=== PATIENT | female | born 1980 | race Caucasian/White ===

== ENCOUNTER → 2023-06-08 | Outpatient (CLI) | payer OTHER, SELFPAY ==
--- OUTSIDE RECORDS SUMMARY | 2023-06-08 09:02 | XMS RPT_ITS | CCD ---
Author Name Unknown Address [address] [place] [address] Organization [facility] Care Team Providers Care Psychologist Industrial Organizational Name Role Phone Michael Parikh MD Primary Care Provider [phone] LIANNA PARK Referring Unavailable MICHAEL PARIKH Primary Care Unavailable SOPHY PAGAN Attending Unavailable MICHAEL PARIKH Primary Care Unavailable MICHAEL PARIKH Attending Unavailable MICHAEL PARIKH Primary Care Unavailable Allergies Allergy Classification Reported Allergen(s) Allergy Type Date of Onset Reaction(s) Facility (7 sources) Iodine Drug Allergy 11-26-2014 Anaphylaxis [facility] (7 sources) Shellfish-Derive d Products Drug Intolerance 06-02-2015 [facility] (4 sources) bee venom Propensity to adverse reactions 03-20-2021 [facility] Medications Current Medications Medication Drug Class(es) Dates Sig (Normalized) Sig (Original) amoxicillin 875 mg / clavulanate 125 mg oral tablet (7 sources) Penicillin-class Antibacterial Start: 09-30-2022 take 1 tablet by mouth every twelve hours amoxicillin-clav ulanate (Augmentin) 875-125 MG tablet Take 1 tablet by mouth every 12 hours for 7 days 14 tablet 0 09/30/2022 Active busPIRone hydrochloride 7.5 mg oral tablet (8 sources) Start: 02-02-2023 take 1 tablet by mouth twice daily busPIRone (Buspar) 7.5 MG tablet take one tablet by mouth two times a day 180 tablet 0 02/02/2023 Active Completed/Discontinued Medications Medication Drug Class(es) Dates Sig (Normalized) Sig (Original) fluticasone propionate 0.05 mg/actuat metered dose nasal spray (4 sources) Corticosteroid Start: 09-30-2022 End: 05-16-2023 take 2 spray(s) nasal route once daily, then take 1-2 spray(s) nasal route once daily fluticasone (Flonase) 50 MCG/ACT nasal spray Administer 2 sprays into each nostril once daily for 1 week then may adjust to 1-2 sprays each nostril once daily. 16 g 0 09/30/2022 05/16/2023 Discontinued 24 hr venlafaxine 150 mg extended release oral capsule (18 sources) Serotonin and Norepinephrine Reuptake Inhibitor Start: 02-17-2022 End: 05-02-2024 take 1 capsule by mouth once daily venlafaxine XR (Effexor XR) 75 MG 24 hr capsule TAKE 1 CAPSULE BY MOUTH DAILY 90 capsule 0 05/03/2023 05/02/2024 Active Problems Active Problems Problem Classification Problem Date Documented Da te Episodic/Chronic Anxiety disorders (7 sources) Anxiety; Translations: [Anxiety disorder, unspecified] Onset: 11-28-2014 03-19-2022 Chronic Mood disorders (7 sources) Recurrent major depression in partial remission; Translations: [Major depressive disorder, recurrent, in partial remission] Onset: 07-01-2020 03-19-2022 Chronic Nutritional deficiencies (10 sources) Vitamin D deficiency; Translations: [Vitamin D deficiency, unspecified] Onset: 03-08-2018 03-19-2022 Chronic Other female genital disorders (1 source) History of dysplasia of cervix; Translations: [Personal history of cervical dysplasia] 12-01-2022 Episodic Other inflammatory condition of skin (7 sources) Psoriasis; Translations: [Psoriasis, unspecified] Onset: 02-17-2022 03-19-2022 Chronic Other skin disorders (1 source) Night sweats; Translations: [Generalized hyperhidrosis] 12-01-2022 Episodic Past or Other Problems Problem Classification Problem Date Documented Da te Episodic/Chronic Other female genital disorders (2 sources) Personal history of cervical dysplasia; Translations: [Personal history of cervical dysplasia] Onset: 12-01-2022 Episodic Other screening for suspected conditions (not mental disorders or infectious disease) (13 sources) Cancer cervix screening status; Translations: [Encounter for screening for malignant neoplasm of cervix] Onset: 12-02-2021 12-01-2022 Episodic Other skin disorders (2 sources) Generalized hyperhidrosis; Translations: [Generalized hyperhidrosis] Onset: 12-01-2022 Episodic Viral infection (7 sources) Recurrent herpes simplex labialis; Translations: [Herpesviral vesicular dermatitis] Onset: 06-19-2015 03-19-2022 Episodic Results Test Name Value Interpretation Reference Range Facil ity Vital Signs Date Time Vital Sign Value Performing Clinician Faci [facility] 05-16-2023 15:50-0500 Body height 170.2 cm Michael Parikh MD Work Phone: [facility] 05-16-2023 15:50-0500 Body mass index (BMI) [Ratio] 26.47 kg/m2 Michael Parikh MD Work Phone: [facility] 05-16-2023 15:50-0500 Body weight 76.66 kg Michael Parikh MD Work Phone: [facility] 05-16-2023 15:50-0500 Diastolic blood pressure 82 mm[Hg] Michael Parikh MD Work Phone: [facility] 05-16-2023 15:50-0500 Heart rate 102 /min Michael Parikh MD Work Phone: [facility] 05-16-2023 15:50-0500 SaO2% (BldA) [Mass fraction] 98 % Michael Parikh MD Work Phone: [facility] 05-16-2023 15:50-0500 Systolic blood pressure 138 mm[Hg] Michael Parikh MD Work Phone: [facility] 12-01-2022 14:43-0400 Body height 170.2 cm Sophy Pagan MD Work Phone: [facility] 12-01-2022 14:43-0400 Body mass index (BMI) [Ratio] 24.59 kg/m2 Sophy Pagan MD Work Phone: [facility] 12-01-2022 14:43-0400 Body temperature 98.2 [degF] Sophy Pagan MD Work Phone: [facility] 12-01-2022 14:43-0400 Body weight 71.22 kg Sophy Pagan MD Work Phone: [facility] 12-01-2022 14:43-0400 Diastolic blood pressure 74 mm[Hg] Sophy Pagan MD Work Phone: [facility] 12-01-2022 14:43-0400 Systolic blood pressure 116 mm[Hg] Sophy Pagan MD Work Phone: [facility] Encounters Encounter Date Encounter Type Care Provider Facility Start: 05-17-2023 Telephone encounter Kiki Zheng PAULO [facility] Clinical Communication Procedures Date Procedure Procedure Detail Performing Clinician Start: 12-01-2022 Microscopic observat ion [Identifier] in Cervix by Cyto stain Michael Parikh MD Work Phone: Start: 07-05-2022 Mammography Sophy lorenzo MD Work Phone: Start: 11-18-2021 Microscopic observat ion [Identifier] in Cervix by Cyto stain Sophy Pagan MD Work Phone: Start: 06-16-2019 Follow-up visit Start: 11-11-2018 Follow-up visit Plan of Treatment Date Care Activity Detail Author Start: 2039 RSV Immunization aged 60 or older (1 - 1-dose 60+ series) RSV Immunization aged 60 or older (1 - 1-dose 60+ series) [facility] Start: 2029 Zoster Vaccines (1 of 2) Zoster Vaccines (1 of 2) [facility] Start: 12-02-2027 Screening for malignant neoplasm of cervix [facility] Start: 11-18-2026 Screening for malignant neoplasm of cervix [facility] Start: 12-01-2025 Screening for malignant neoplasm of cervix Pap Smear [facility] Start: 11-18-2024 Screening for malignant neoplasm of cervix Pap Smear [facility] Start: 12-07-2023 End: 12-07-2023 Patient encounter procedure 12/07/2023 1:45 PM EDT Office Visit [facility] [address] [place] [address] Sophy Pagan MD [address] [place] [address] [address] [place] [address] [facility] Start: 07-05-2023 Screening for malignant neoplasm of breast Mammogram [facility] Start: 05-16-2023 End: 05-16-2023 Patient encounter procedure 05/16/2023 4:20 PM EST Office Visit [facility] [address] [place] [id number] Michael Parikh MD [address] [place] [address] [facility] Start: 05-16-2023 End: 05-16-2024 25-hydroxyvitamin D3 [Mass/volume] in Serum or Plasma Vitamin D Deficiency Screening (Vit D 25) Lab Routine Vitamin D deficiency Expected: 05/16/2023 (Approximate), Expires: 05/16/2024 [facility] Immunizations Immunization Date Immunization Notes Care Provider Fa cility 04-01-2022 Influenza, injectabl e, Madin Jessica Canine Kidney, preservative free, quadrivalent Kiki Jarrell LPN [facility] 04-01-2022 influenza virus vacc ine, unspecified formulation Michael Parikh MD Work Phone: [facility] 10-07-2021 Human Papillomavirus 9-valent vaccine Sophy Pagan MD Work Phone: [facility] 10-07-2021 HPV, unspecified formulation Sophy Pagan MD Work Phone: [facility] 03-17-2020 influenza virus vacc ine, unspecified formulation Sophy Pagan MD Work Phone: [facility] Work Phone: 05-31-2016 influenza virus vacc ine, unspecified formulation Sophy Pagan MD Work Phone: [facility] 05-31-2016 influenza, seasonal, injectable Kiki Jarrell LPN [facility] Payers Date Payer Category Payer Private Health Insurance JASKARAN SIMONS [id number] 2023-Present [address] [place] [id number] Commercial [id number] 2023 Private Health Insurance [id number] 2021 Unknown [facility] [employer] [employer] [id number] 2021-Present [address] [place] [address] Commercial [id number] 2021 Unknown [id number] Social History Date Type Detail [facility] tobacco smoker [facility] History of tobacco use Cigarette Smoker [facility] Start: 12-01-2022 End: 05-16-2023 Alcohol intake Current drinker of alcohol (finding) [facility] Start: 12-01-2022 End: 05-16-2023 Alcohol intake [facility] Start: 12-01-2022 End: 05-16-2023 Tobacco use panel [facility] Start: 1980 Sex Assigned At Not on file [facility] Clinical Notes 12-01-2022 to 05-17-2023 Telephone Encounter - Kiki Jarrell LPN - 05/17/2023 11:49 AM ESTTelephone Encounter - Kiki Jarrell LPN - 05/17/2023 11:49 AM Ann Parikh MD - 05/16/2023 4:20 PM EST Note Date & Type Note Facility 05-17-2023 Telephone encount er Note Patient needed lab orders faxed. Faxed lab orders and confirmation is: Your fax has been successfully sent to Ana Luisa at [facility] 05-17-2023 Miscellaneous Notes Formattin g of this note might be different from the original. Patient needed lab orders faxed. Faxed lab orders and confirmation is: Your fax has been successfully sent to Ana Luisa at documented in this encounter [facility] 05-16-2023 History of Presen t illness Narrative Images from the original note were not included. [facility] [address] [facility] [address] Visit Type: Office Visit PCP: Michael Parikh MD Reason for Visit: Annual Exam and Med Refill Assessment and Plan Ana Luisa was seen today for annual exam and med refill. Diagnoses and all orders for this visit: Annual physical exam - CBC; Future - Comprehensive metabolic panel; Future - Lipid panel; Future - CBC - Comprehensive metabolic panel - Lipid panel Vitamin D deficiency - Vitamin D Deficiency Screening (Vit D 25); Future - Vitamin D Deficiency Screening (Vit D 25) Encounter for screening mammogram for breast cancer - Bilateral screening mammogram with tomosynthesis; Future Follow up for Physical in 1 year. Subjective HPI PATIENT CONCERNS TODAY: Ana Luisa Miguel presented to the office for a physical. Health Maintenance: Cervical Cancer Screen: 12/01/22 Dr. Pagan Breast Cancer Screen: Accepts breast cancer screening: Patient will call [phone] to schedule. Eye exam: goes yearly Dental Exam: goes twice a year Vaccines Stated as up to date but no records available Lifestyle: Exercise: hasn't been doing the treadmil lately Diet: in general, a healthy diet Social History Alcohol use: She reports current alcohol use. Tobacco use: She reports that she has been smoking cigarettes. She has never used smokeless tobacco. Substance use: She reports no history of drug use. Sexual history: She reports being sexually active. OB history: OB History Para Term AB Living 2 1 1 0 1 1 SAB IAB Ectopic Multiple Live Births 1 0 0 0 1 # Outcome Date GA Lbr Anish/2nd Weight Sex Delivery Anes PTL Lv 2 SAB 1 Term M Vag-Spont NAHOMY Breast history: Breast Cancer-relatedfamily history is not on file. Personal history of breast cancer: no Gynecologic history: Patient's last menstrual period was 05/16/2023. Family history of uterine or ovarian cancers: no Personal history of uterine or ovarian cancers: no Review of Systems Constitutional: Negative for activity change, appetite change and fatigue. HENT: Negative for congestion, postnasal drip, rhinorrhea and sore throat. Respiratory: Negative for cough and shortness of breath. Cardiovascular: Negative for chest pain. Gastrointestinal: Negative for abdominal pain, constipation, diarrhea, nausea and vomiting. Skin: Negative for rash. All other systems reviewed and are negative. Immunization History Administered Date(s) Administered HPV 9-Valent 10/07/2021 Influenza, Unspecified 05/31/2016, 03/17/2020 Influenza, injectable, MDCK, preservative free, quadrivalent 04/01/2022 Influenza, seasonal, injectable 05/31/2016 Moderna SARS-CoV-2 Vaccination 06/26/2020, 07/25/2020 Allergies Allergen Reactions Iodine Anaphylaxis Bee Venom Shellfish-Derived Products Outpatient Medications Prior to Visit Medication Sig Dispense Refill busPIRone (Buspar) 7.5 MG tablet take one tablet by mouth two times a day 180 tablet 0 ustekinumab (Stelara) injection Inject 45mg under the skin every 12 weeks 0.5 mL 0 venlafaxine XR (Effexor XR) 150 MG 24 hr capsule TAKE 1 CAPSULE BY MOUTH DAILY 90 capsule 0 venlafaxine XR (Effexor XR) 75 MG 24 hr capsule TAKE 1 CAPSULE BY MOUTH DAILY 90 capsule 0 amoxicillin-clavulanate (Augmentin) 875-125 MG tablet Take 1 tablet by mouth every 12 hours for 7 days 14 tablet 0 erythromycin (Romycin) 5 MG/GM ophthalmic ointment Apply 1 a thin layer into affected eye three times a day as directed 3.5 g 0 fluconazole (Diflucan) 150 MG tablet Take 1 tablet by mouth 1 time per day for 1 day 1 tablet 0 fluticasone (Flonase) 50 MCG/ACT nasal spray Administer 2 sprays into each nostril once daily for 1 week then may adjust to 1-2 sprays each nostril once daily. (Patient not taking: Reported on 05/16/2023) 16 g 0 No facility-administered medications prior to visit. Past Medical History: Diagnosis Date Anxiety Cervical dysplasia, moderate s/p cone biopsy 07/06/21 Closed fracture of right distal radius SCHEDULED FOR THE SURGERY ON 08/16/2017 Current smoker H/O cold sores Hyperparathyroidism (HCC) 03/08/2018 Kidney stones Multiple fracture Pain, pelvic, female Psoriasis Dr. Wetzel S/P ORIF (open reduction internal fixation) fracture 09/15/2017 Secondary hyperparathyroidism (HCC) 03/08/2018 Traumatic closed displaced fracture of distal end of radius with routine healing 09/15/2017 Umbilical hernia Urethral diverticulum Dr. Campbell Vaginal candidiasis 05/21/2021 Vaginal cyst Work related injury lead door in radiology crushed pelvis Work related injury 2012 lead door in radiology crushed pelvis Social History Socioeconomic History Marital status: Single Tobacco Use Smoking status: Some Days Packs/day: 0 Types: Cigarettes Smokeless tobacco: Never Vaping Use Vaping Use: Never used Substance and Sexual Activity Alcohol use: Yes Alcohol/week: 0.0 standard drinks of alcohol Drug use: No Sexual activity: Yes Past Surgical History: Procedure Laterality Date BACK SURGERY 03/[address] [facility] DENTAL SURGERY 06/2013 FOOT SURGERY [place] CONIZATION CERVIX W/WO D&C RPR ELTRD EXC 07/06/2021 cone biopsy for ALO 2-3 (external margins neg, ECC possibly positive) TONSILLECTOMY AND ADENOIDECTOMY (HISTORICAL) URETHRA SURGERY 01/2013 WRIST FRACTURE SURGERY Right 08/16/2017 ORIF wrist and CRPP DRUJ Past Surgical History: Procedure Laterality Date BACK SURGERY 03/[address] [facility] DENTAL SURGERY 06/2013 FOOT SURGERY [place] CONIZATION CERVIX W/WO D&C RPR ELTRD EXC 07/06/2021 cone biopsy for ALO 2-3 (external margins neg, ECC possibly positive) TONSILLECTOMY AND ADENOIDECTOMY (HISTORICAL) URETHRA SURGERY 01/2013 WRIST FRACTURE SURGERY Right 08/16/2017 ORIF wrist and CRPP DRUJ Family History Problem Relation Name Age of Onset High Blood Pressure Mother Other ([address]) Father IBS Other (sarcoma) Sister 21 synovial cell cancer Thyroid disease Sister Objective BP 138/82 (BP Location: Right arm, Patient Position: Sitting, BP Cuff Size: Large adult) Pulse 102 Ht 5' 7 (1.702 m) Wt 169 lb (76.7 kg) LMP 05/16/2023 SpO2 98% BMI 26.47 kg/m Physical Exam Vitals and nursing note reviewed. Constitutional: Appearance: Normal appearance. HENT: Head: Normocephalic and atraumatic. Right Ear: Tympanic membrane, ear canal and external ear normal. Left Ear: Tympanic membrane, ear canal and external ear normal. Nose: Nose normal. Mouth/Throat: Mouth: Mucous membranes are moist. Pharynx: Oropharynx is clear. Eyes: Extraocular Movements: Extraocular movements intact. Conjunctiva/sclera: Conjunctivae normal. Pupils: Pupils are equal, round, and reactive to light. Cardiovascular: Rate and Rhythm: Normal rate and regular rhythm. Pulses: Normal pulses. Heart sounds: Normal heart sounds. No murmur heard. Pulmonary: Effort: Pulmonary effort is normal. Breath sounds: Normal breath sounds. No wheezing. Abdominal: General: Abdomen is flat. Bowel sounds are normal. Palpations: Abdomen is soft. Tenderness: There is no abdominal tenderness. Musculoskeletal: General: Normal range of motion. Cervical back: Normal range of motion and neck supple. Skin: General: Skin is warm and dry. Capillary Refill: Capillary refill takes less than 2 seconds. Neurological: General: No focal deficit present. Mental Status: She is alert. Mental status is at baseline. Michael Parikh MD 05/18/2023 11:21 PM documented in this encounter [facility] 05-02-2023 Telephone encount er Note Last appointment: 02/17/22 Next appointment: 05/16/23 [facility] 05-02-2023 Miscellaneous Notes Formattin g of this note might be different from the original. Last appointment: 02/17/22 Next appointment: 05/16/23 New insurance [employer] does not take effect until 05/06/23. Medication name: venlafaxine XR (Effexor XR) 75 MG 24 hr capsule Medication dosage: 75 mg (Miligrams Monthly quantity needed: 90 How many day supply requestin days Medication route: oral (PO) Medication administration time(s): daily If taking medication PRN, reason for taking medication: N/A If this is a controlled substance do you receive this or any other controlled medication from any other doctor or facility: N/A Ordering provider: Dr. Parikh Date of last office visit: 10/28/21 Date of next office visit: 05/16/23 Date of last refill: (see medication tab): 02/02/23 Updated/Validated preferred pharmacy: Yes Patient instructed to contact the pharmacy prior to picking up the medication: Yes documented in this encounter [facility] 05-02-2023 Telephone encount er Note New insurance [employer] does not take effect until 05/06/23. Medication name: venlafaxine XR (Effexor XR) 75 MG 24 hr capsule Medication dosage: 75 mg (Miligrams Monthly quantity needed: 90 How many day supply requestin days Medication route: oral (PO) Medication administration time(s): daily If taking medication PRN, reason for taking medication: N/A If this is a controlled substance do you receive this or any other controlled medication from any other doctor or facility: N/A Ordering provider: Dr. Parikh Date of last office visit: 10/28/21 Date of next office visit: 05/16/23 Date of last refill: (see medication tab): 02/02/23 Updated/Validated preferred pharmacy: Yes Patient instructed to contact the pharmacy prior to picking up the medication: Yes [facility] 02-02-2023 Telephone encount er Note Lmom letting pt know refills were approved but would need OV for any additional refills beyond what was approved today [facility] 02-02-2023 Miscellaneous Notes Formattin g of this note might be different from the original. Lmom letting pt know refills were approved but would need OV for any additional refills beyond what was approved today Approving, but needs appt for additional refills. Patient's further questions if applicable: Patient called to follow up. Patient states she is completely out of medication. Patient was advised that physicians have 24-48 hours to refill prescriptions but that a follow-up message would be sent over. Medication pended, please review Last visit 02/17/22 Next visit-not scheduled Ordering provider: Dr. Parikh Date of last office visit: 02/17/22 Date of next office visit: none Updated/Validated preferred pharmacy: Yes Patient instructed to contact the pharmacy prior to picking up the medication: Yes (1) Medication name: busPIRone (Buspar) 7.5 MG tablet Medication dosage: 7.5 mg (Miligrams Monthly quantity needed: 60 How many day supply requestin days Medication route: oral (PO) Medication administration time(s): 2 times a day (BID) If taking medication PRN, reason for taking medication: N/A If this is a controlled substance do you receive this or any other controlled medication from any other doctor or facility: No Date of last refill (see medication tab): 06/08/22 (2) Medication name: venlafaxine XR (Effexor XR) 75 MG 24 hr capsule Medication dosage: 75 mg (Miligrams Monthly quantity needed: 30 How many day supply requestin days Medication route: oral (PO) Medication administration time(s): daily If taking medication PRN, reason for taking medication: N/A If this is a controlled substance do you receive this or any other controlled medication from any other doctor or facility: No Date of last refill (see medication tab): 02/17/22 (3) Medication name: venlafaxine XR (Effexor XR) 150 MG 24 hr capsule Medication dosage: 150 mg (Miligrams Monthly quantity needed: 30 How many day supply requestin days Medication route: oral (PO) Medication administration time(s): daily If taking medication PRN, reason for taking medication: N/A If this is a controlled substance do you receive this or any other controlled medication from any other doctor or facility: No Date of last refill (see medication tab): 02/17/22 documented in this encounter [facility] 02-02-2023 Telephone encount er Note Approving, but needs appt for additional refills. [facility] 02-01-2023 Telephone encount er Note Patient's further questions if applicable: Patient called to follow up. Patient states she is completely out of medication. Patient was advised that physicians have 24-48 hours to refill prescriptions but that a follow-up message would be sent over. [facility] 01-31-2023 Telephone encount er Note Medication pended, please review Last visit 02/17/22 Next visit-not scheduled [facility] 01-31-2023 Telephone encount er Note Ordering provider: Dr. Parikh Date of last office visit: 02/17/22 Date of next office visit: none Updated/Validated preferred pharmacy: Yes Patient instructed to contact the pharmacy prior to picking up the medication: Yes (1) Medication name: busPIRone (Buspar) 7.5 MG tablet Medication dosage: 7.5 mg (Miligrams Monthly quantity needed: 60 How many day supply requestin days Medication route: oral (PO) Medication administration time(s): 2 times a day (BID) If taking medication PRN, reason for taking medication: N/A If this is a controlled substance do you receive this or any other controlled medication from any other doctor or facility: No Date of last refill (see medication tab): 06/08/22 (2) Medication name: venlafaxine XR (Effexor XR) 75 MG 24 hr capsule Medication dosage: 75 mg (Miligrams Monthly quantity needed: 30 How many day supply requestin days Medication route: oral (PO) Medication administration time(s): daily If taking medication PRN, reason for taking medication: N/A If this is a controlled substance do you receive this or any other controlled medication from any other doctor or facility: No Date of last refill (see medication tab): 02/17/22 (3) Medication name: venlafaxine XR (Effexor XR) 150 MG 24 hr capsule Medication dosage: 150 mg (Miligrams Monthly quantity needed: 30 How many day supply requestin days Medication route: oral (PO) Medication administration time(s): daily If taking medication PRN, reason for taking medication: N/A If this is a controlled substance do you receive this or any other controlled medication from any other doctor or facility: No Date of last refill (see medication tab): 02/17/22 [facility] 12-01-2022 History of Presen t illness Narrative Ana Luisa Miguel 12/01/2023 42 y.o. Primary Care Physician: Michael Parikh MD Chief Complaint Patient presents with Annual Exam Pt is wondering about HPV vaccine as she never came back for her 2nd or 3rd dose. She also is wondering about her pap if she is up to date. HPI : Ana Luisa Miguel is a 42 y.o. female here for annual exam Gynecologic History: Patient's last menstrual period was 11/10/2022 (approximate). Menses are regular. Menses occur every regular every 4 weeks. 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 Wetzel S/P ORIF (open reduction internal fixation) fracture 09/15/2017 Secondary hyperparathyroidism (HCC) 03/08/2018 Traumatic closed displaced fracture of distal end of radius with routine healing 09/15/2017 Umbilical hernia Urethral diverticulum Dr. Cmapbell Vaginal candidiasis 05/21/2021 Vaginal cyst Work related injury lead door in radiology crushed pelvis Work related injury 2012 lead door in radiology crushed pelvis Past Surgical History: Procedure Laterality Date BACK SURGERY 03/[address] [facility] DENTAL SURGERY 06/2013 FOOT SURGERY [place] CONIZATION CERVIX W/WO D&C RPR ELTRD EXC 07/06/2021 cone biopsy for ALO 2-3 (external margins neg, ECC possibly positive) TONSILLECTOMY AND ADENOIDECTOMY (HISTORICAL) URETHRA SURGERY 01/2013 WRIST FRACTURE SURGERY Right 08/16/2017 ORIF wrist and [facility]uel[facility] Family History Problem Relation Name Age of Onset High Blood Pressure Mother Other ([id number]) Father IBS Other (sarcoma) Sister 21 synovial cell cancer Thyroid disease Sister Social History Socioeconomic History Marital status: Single Spouse name: Not on file Number of children: Not on file Years of education: Not on file Highest education level: Not on file Occupational History Not on file Tobacco Use Smoking status: Some Days Packs/day: 0.00 Types: Cigarettes Smokeless tobacco: Never Vaping Use Vaping Use: Never used Substance and Sexual Activity Alcohol use: Yes Alcohol/week: 0.0 standard drinks of alcohol Drug use: No Sexual activity: Yes Other Topics Concern Not on file Social History Narrative Not on file Social Determinants of Health Financial Resource Strain: Not on file Food Insecurity: Not on file Transportation Needs: Not on file Physical Activity: Not on file Stress: Not on file Social Connections: Not on file Intimate Partner Violence: Not on file Housing Stability: Not on file OB History Para Term AB Living 2 1 1 1 1 SAB IAB Ectopic Multiple Live Births 1 1 # Outcome Date GA Lbr Anish/2nd Weight Sex Delivery Anes PTL Lv 2 SAB 1 Term M Vag-Spont NAHOMY MEDICATIONS: Current Outpatient Medications Medication Sig Dispense Refill busPIRone (Buspar) 7.5 MG tablet take one tablet by mouth two times a day 180 tablet 1 fluticasone (Flonase) 50 MCG/ACT nasal spray Administer 2 sprays into each nostril once daily for 1 week then may adjust to 1-2 sprays each nostril once daily. 16 g 0 ustekinumab (Stelara) injection INJECT 0.5ML UNDER THE SKIN ON DAY 1 THEN INJECT 0.5ML UNDER THE SKIN ON DAY 29 1 mL 0 venlafaxine XR (Effexor XR) 150 MG 24 hr capsule TAKE 1 CAPSULE BY MOUTH DAILY 90 capsule 3 venlafaxine XR (Effexor XR) 75 MG 24 hr capsule TAKE 1 CAPSULE BY MOUTH DAILY 90 capsule 3 amoxicillin-clavulanate (Augmentin) 875-125 MG tablet Take 1 tablet by mouth every 12 hours for 7 days 14 tablet 0 erythromycin (Romycin) 5 MG/GM ophthalmic ointment Apply 1 a thin layer into affected eye three times a day as directed 3.5 g 0 fluconazole (Diflucan) 150 MG tablet Take 1 tablet by mouth 1 time per day for 1 day 1 tablet 0 ustekinumab (Stelara) injection Inject 45mg under the skin every 12 weeks 0.5 mL 1 No current facility-administered medications for this visit. ALLERGIES: Allergies as of 12/01/2022 - never reviewed Allergen Reaction Noted Iodine Anaphylaxis 11/26/2014 Shellfish-derived products 06/02/2015 REVIEW OF SYSTEMS: CONSTIUTIONAL: No weight change or fatigue. No fever or chills. No changes in appetite. CV: No chest pain, palpitations, or syncope. RESPIRATORY: No SOB, cough, or wheezing. BREAST: No breast abnormalities or lumps. GI: No heartburn, nausea, vomiting, diarrhea, constipation, bloating or bowel changes. No blood or mucous with bowel movements or melena. : No dysuria, frequency, hesitancy, urgency, hematuria or nocturia. No urinary incontinence. No vaginal discharge, odor, or itch. No dyspareunia. NEURO: No weakness or sensory changes DERM: No rash or itching. HEME and LYMPH : No lymphoma or abnormal bleeding history PHYSICAL EXAM: Vitals: 12/01/22 1443 BP: 116/74 Temp: 36.8 C (98.2 F) TempSrc: Temporal Weight: 157 lb (71.2 kg) Height: 5' 7 (1.702 m) Body mass index is 24.59 kg/m . GENERAL EXAM CONSTITUTIONAL: well developed, well nourished, well groomed, no acute distress NECK: no thyromegaly, supple CARDIOVASCULAR: normal rate, no edema LUNGS: normal effort ABDOMEN: soft, non-tender, non-distended NEUROLOGICAL: no gross motor or sensory deficits noted MUSCULOSKETAL: normal gait, no cyanosis PSYCHIATRIC: normal mood and affect, A&O x3 FNP EXAM: BREASTS: normal, no masses, tenderness or skin changes EXTERNAL GENITALIA: normal female structures VAGINA: normal ruggae, no lesions CERVIX: no lesions, no cervical motion tenderness, normal appearance UTERUS: normal mobility, nontender, normal size, shape and consistency ADNEXA: normal, non tender no masses URETHRA: normal. nontender BLADDER: non tender PELVIC SUPPORT DEFECTS: normal support of vagina, uterus, and bladder ANUS/PERINEUM: no hemorrhoids, masses or warts noted ASSESSMENT/PLAN: Ana Luisa was seen today for annual exam. 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 Cannot stay for second Gardasil today, but will stop by sometime soon to get it done Discussed night sweats and menstrual chamnges may be related to perimenopause or thyroid issues, will check TSH and FSH on day 3 of next cycle. Discussed that if mother went through menopause earlier, she may too. Discussed pap guidelines and routine gynecologic preventative care/screening. Self breast exam discussed as well as recommendation for yearly clinical breast exam and mammogram. Weight management through healthy diet and regular exercise reviewed. Advised use of MVI and vit D supplementation, calcium through diet if able. Colonoscopy recommended for women over 45, earlier if a family history. Routine health maintenance per patient's PCP as well. Sophy Pagan M.D. 12/01/2022 at 3:41 PM (Electronically Signed) documented in this encounter [facility] Diagnosis Annual physical exam- Primary Routine general medical examination at a health care facility Vitamin D deficiency Encounter for screening mammogram for breast cancer documented in this encounter [facility] Summary Purpose Family History No Family History Records FoundNo Family History Records FoundNo Family History Records FoundNo Family History Records FoundNo Family History Records Found Advance Directives No Advanced Directives Records FoundNo Advanced Directives Records FoundNo Advanced Directives Records FoundNo Advanced Directives Records FoundNo Advanced Directives Records Found Additional Source Comments INFORMATION SOURCE (unrecogn ized section and content) DATE CREATED AUTHOR AUTHOR'S ORGANIZ ATION 06/16/2019 [facility] DATE CREATED AUTHOR AUTHOR'S ORGANIZ ATION 06/16/2019 [employer] DATE CREATED AUTHOR AUTHOR'S ORGANIZ ATION 07/10/2021 [facility] DATE CREATED AUTHOR AUTHOR'S ORGANIZ ATION 06/03/2023 [facility] Reason for Visit (unrecogniz ed section and content) Reason Onset Date Comments Med Refill 01/31/2023 Called for follo w-up Reason Onset Date Comments Med Refill 05/02/2023 Reason Onset Date Comments lab orders 05/17/2023 Reason Comments Annual Exam Med Refill Reason Onset Date Comments Med Refill 05/17/2023 Care Teams (unrecognized sec tion and content) Psychologist Industrial Organizational Relationship Specialty Start Date End Date Michael Parikh MD [address] [place] [address] [address] [place] [address] PCP - General 07/01/20 Psychologist Industrial Organizational Relationship Specialty Start Date End Date Michael Parikh MD [facility] [address] PCP - General 07/01/20 Psychologist Industrial Organizational Relationship Specialty Start Date End Date Michael Parikh MD [address] [place] [id number] PCP - General 07/01/20 Psychologist Industrial Organizational Relationship Specialty Start Date End Date Michael Parikh MD [facility] [address] [address] PCP - General 07/01/20 FOR RECORDS PERTAINING TO PATIENTS WHO ARE OR HAVE BEEN ENROLLED IN A CHEMICAL DEPENDENCY/SUBSTANCEABUSE PROGRAM, SOME INFORMATION MAY BE OMITTED. This clinical summary was aggregated from multiple sources. Caution should be exercised in using it in the provision of clinical care. This summary normalizes information from multiple sources, and as a consequence, information in this document may materially change the coding, format and clinical context of patient data. In addition, data may be omitted in some cases. CLINICAL DECISIONS SHOULD BE BASED ON THE PRIMARY CLINICAL RECORDS. [employer] [facility]. provides no warranty or guarantee of the accuracy or completeness of information in this document.
[2023-06-08 09:03] LABS: Hematocrit 40.9 % (37-47); Hemoglobin 13.2 g/dL (12.0-15.0); Mean Corp Hgb Conc 32.3 g/dL (32-36); Mean Corpuscular Hgb 30.1 pg (27.0-32.0); Mean Corpuscular Volume 93.2 fL (81-99); Mean Platelet Vol. 8.6 fl (6.2-12.0); Platelet Count 187 K/mm3 (150-450); RBC Distribution Width CV 13.1 % (11.6-14.6); RBC Distribution Width SD 44.7 fl (35.1-43.9); Red Blood Count 4.39 M/mm3 (4.2-5.4); White Blood Count 6.4 K/mm3 (4.4-11.0)
[2023-06-08 09:56] LABS: Vitamin D,25 Hydroxy 17.2 ng/mL
[2023-06-08 10:10] LABS: ALB/GLOB Ratio 0.9 RATIO (0.9-2.4); AST(SGOT) 18 U/L (15-37); Alanine Aminotransfer ALT/SGPT 35 U/L (13-56); Albumin, Serum 3.6 g/dL (3.2-5.0); Alkaline Phosphatase 46 U/L (45-117); Anion Gap 4 (5-15); BUN 12 mg/dL (7-18); BUN/Creat Ratio 15.4 RATIO (10-20); Calcium,Total 8.4 mg/dL (8.5-10.1); Chloride 107 mmol/L (98-107); Cholesterol 179 mg/dL (200); Creatinine, Serum 0.78 mg/dL (0.55-1.02); EST Glomerular Filtration Rate 86 mL/min (>60); Est Glom Filt Rate - Afr Amer 104 mL/min (>60); Estradiol 98.4 pg/mL; Follicle Stimulating Hormone 4.8 mIU/mL; Globulin 3.8 g/dL (2.2-4.2); Glucose 104 mg/dL (74-106); High Density Lipoprotein 72 mg/dL; Potassium 3.5 mmol/L (3.5-5.1); Protein, Total 7.4 g/dL (6.4-8.2); Sodium Level 139 mmol/L (136-145); Thyroid Stim Hormone (TSH) 3.22 uIU/mL (0.358-3.74); Triglycerides 155 mg/dL; Very Low Density Lipoprotein 31 mg/dL (5-40)
== END | disposition home or self-care (01) ==
LOC: PAVLAB 08:40
PROVIDERS: PCP Student in an Organized Health Care Education/Training Program; Referring Provider Student in an Organized Health Care Education/Training Program; Visit Provider Student in an Organized Health Care Education/Training Program
DX: Z00.00 Encounter for general adult medical examination without abnormal findings (principal); R61 Generalized hyperhidrosis; E55.9 Vitamin D deficiency, unspecified
CPT/HCPCS: 36415; 80053; 80061; 82306; 82670; 83001; 84443; 85027

== ENCOUNTER → 2023-09-16 | Outpatient (CLI) | payer OTHER, SELFPAY ==
[2023-09-16 12:29] LABS: hCG Titer Quant., Serum < 1 mIU/mL (1-3)
[2023-09-16 14:15] LABS: Follicle Stimulating Hormone 4.7 mIU/mL; Prolactin 11.9 ng/mL; Thyroid Stim Hormone (TSH) 1.55 uIU/mL (0.358-3.74)
[2023-09-20 14:09] LABS: 17-Hydroxyprogesterone 60 ng/dL (.)
[2023-09-22 11:11] LABS: Testosterone, % Free 1.73 % (0.50-2.80); Testosterone, Total 46 ng/dL (4-50)
== END | disposition home or self-care (01) ==
PROVIDERS: PCP Student in an Organized Health Care Education/Training Program
DX: L68.0 Hirsutism (principal)
CPT/HCPCS: 36415; 82627; 83001; 83498; 84146; 84402; 84403; 84443; 84702; 82626

== ENCOUNTER → 2023-09-27 | Outpatient (CLI) | payer OTHER, SELFPAY ==
--- NOTE | 2023-09-27 08:28 | US_ITS ---
PROCEDURE: ULTRASOUND OF THE FEMALE PELVIS - COMPLETE REASON FOR EXAM: Female, 43 years old. Hirsutism TECHNIQUE: Transabdominal and Transvaginal TECHNICAL QUALITY: Adequate. COMPARISON: None. FINDINGS: The uterus is anteverted and is in a midline position. The uterus measures 8.5 x 6.0 x 3.8 cm. There is no demonstrated myometrial mass. The endometrium measures 5.9 mm in thickness, and is striated. There is no demonstrated endometrial mass. Normal uterine cervix. The right ovary is visualized. The right ovary measures 3.6 x 2.9 x 2.3 cm. Mildly degenerated follicular cyst of the right ovary measures 2.2 cm in diameter. There is no visualized right adnexal mass or complex lesion. The left ovary is visualized. The left ovary measures 4.0 x 3.3 x 2.3 cm. Moderate size simple cyst of the left ovary measures 3.1 cm in diameter There is no visualized left adnexal mass or complex lesion. Normal color vascular flow and Doppler signal is demonstrated in both ovaries. There is no fluid in the cul-de-sac. US/Pelvic w/ Transvaginal IMPRESSION: 1. Small to moderate-sized simple bilateral ovarian cysts Electronically Signed: Rasheed Valadez MD at 12:27 EDT ,
== END | disposition home or self-care (01) ==
LOC: OPUS 08:26
PROVIDERS: PCP Student in an Organized Health Care Education/Training Program
DX: L68.0 Hirsutism (principal)
CPT/HCPCS: 76830; 76856